=== PATIENT | male | born 1930 | race Caucasian/White ===

== ENCOUNTER 2017-12-22 13:57 | Outpatient (CLI) | payer MEDICARE, OTHER ==
[2015-08-13 09:09] VITALS: BP 123/88
[2017-12-22 14:25] LABS: MEAN CORPUSCULAR HEMOGLOBIN 31.1 pg (28.0-34.0); MEAN CORPUSCULAR VOLUME 96.4 fl (80.0-100.0)
[2017-12-22 14:40] LABS: eGFR (African) > 60; eGFR (Non-African) > 60
--- NOTE | 2017-12-22 14:51 | Diagnostic Imaging Report ---
JOLIE HINOJOSA [facility] [address] Formerly [facility] [address] 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 History: Evaluate lung gunn. DYSPNEA ON EXERTION (Hx) Comparison examination: None provided. Findings: PA lateral chest demonstrate a normal cardiac and mediastinal silhouette. Vascular calcifications involving the aortic arch. Parenchymal scarring at the bases and posterior sulci. No apical infiltrate. No blunting of the costophrenic margins. articular degenerative changes. Impression: Parenchymal scarring. No acute appearing pulmonary process. If symptoms persist, consider obtaining high-resolution CT chest to further evaluate. 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
== END 2017-12-22 14:00 ==
LOC: LAB 13:57
PROVIDERS: ATTEND Family Medicine
DX: R06.09 Other forms of dyspnea (principal)
CPT/HCPCS: 36415; 71046; 80053; 83880; 85027

== ENCOUNTER 2019-01-10 13:02 | Outpatient (CLI) | payer MEDICARE, OTHER ==
[2015-08-13 09:09] VITALS: BP 123/88
[2019-01-10 13:30] LABS: BASOPHILS % 0.5 (0.0-1.5); EOSINOPHILS % 4.4 % (0.0-6.8); MEAN CORPUSCULAR HEMOGLOBIN 32.4 pg (28.0-34.0); MONOCYTES % 7.7 % (0.0-11.0); NEUTROPHILS # 2.6 # k/uL (1.4-7.7)
[2019-01-10 13:47] LABS: eGFR (Non-African) 51
== END 2019-01-10 13:04 ==
LOC: LAB 13:02
PROVIDERS: ATTEND Family Medicine
DX: I10 Essential (primary) hypertension (principal); G62.9 Polyneuropathy, unspecified
CPT/HCPCS: 36415; 80053; 82607; 82746; 85025; 85651

== ENCOUNTER 2019-04-24 06:15 | Emergency (ER) | payer MEDICARE, OTHER ==
--- NOTE | 2019-04-24 06:40 | ED Physician Documentation ---
Upper Respiratory Symptoms - HISTORIAN Historian: patient - HPI Stated Complaint: Shorntess of breath Chief Complaint: Dyspnea Onset: days ago (2) Duration: constant Context: denies: recent foreign travel, multiple patients Severity: moderate Associated Symptoms: fever, productive cough, shortness of breath - ROS CONST/EYES: weakness CVS/RESP: shortness of breath LYMPH: denies: leg swelling, ankle swelling GI/: none NEURO/PSYCH: denies: dizziness MS/SKIN: denies: muscle aches - PAST HX Lung Disease: none PE Risk Factors: hypertension Other History: cardiac disease, CHF, hypertension Surgeries/Procedures: other (cataracts, LTKR) Immunizations: UTD - SOCIAL HX Smoking History: non-smoker Alcohol Use: none Drug Use: none - FAMILY HX Family History: none - REVIEWED ASSESSMENTS Nursing Assessment Reviewed: Yes Vitals Reviewed: Yes <Jazmín Alanis - Last Filed: 04/24/19 06:57> <Milad Pacheco - Last Filed: 04/24/19 09:15> - HPI Additional Information: Patient is an 88-year-old male who presents to the ER with son. Patient c/o shortness of breath. He was seen by PCP on 04/22/19 in the clinic and diagnosed with sinusitis and started on Augmentin. Patient started having cough and congestion last night and started complaining to his son this morning about being short of breath. (Jazmín Alanis) - PAST HX Allergies/Adverse Reactions: Allergies Allergy/AdvReac Type Severity Reaction Status Date / Time donepezil HCl Allergy Unknown Verified 04/24/19 06:38 Home Medications: Ambulatory Orders Medication Instructions Recorded Ampicillin Trihydrate 500 mg PO BID PRN 04/24/19 Carvedilol [Coreg] 3.125 mg PO BID 04/24/19 Cyanocobalamin/Cobamamide [Vitamin 1 each SL DAILY 04/24/19 B-12 5,000 Mcg Tab Sl] Garlic 1,000 mg PO DAILY 04/24/19 Magnesium Oxide [Magnesium] 250 mg PO DAILY 04/24/19 Rosuvastatin Calcium 20 mg PO HS 04/24/19 Saw [place] 320 mg PO DAILY 04/24/19 Ubidecarenone [Co Q10] 200 mg PO DAILY 04/24/19 Vitamin B Complex [Balanced B-50] 1 tab PO DAILY 04/24/19 - VITAL SIGNS Vital Signs: Vital Signs Temp Pulse Resp BP Pulse Ox 98.5 F 61 19 161/71 93 04/24/19 06:21 04/24/19 08:30 04/24/19 08:00 04/24/19 08:00 04/24/19 08:30 Progress - EKG/XRAY/CT EKG: NSR (NSR, rate=65; 1st degree AV block. RAD. PVC's.) <Milad Pacheco - Last Filed: 04/24/19 09:15> - Progress Progress: CXR: Cardiomegaly with atherosclerotic thoracic aorta with slight pulmonary venous congestion. Small infiltrate in the right lung base. No effusions or pneumothorax. [facility], Dr. Martinez (Milad Pacheco) - Lab Results Lab Results: Lab Results 04/24/19 04/24/19 04/24/19 07:06 06:40 06:40 WBC RBC Hgb Hct MCV MCH MCHC RDW Plt Count Neut % (Auto) Lymph % (Auto) [place] % (Auto) Eos % (Auto) Baso % (Auto) Neut # (Auto) Lymph # (Auto) [place] # (Auto) Eos # (Auto) Baso # (Auto) D-Dimer 911 ng/mL H ng/mL (6.0-682) Sodium Potassium Chloride Carbon Dioxide BUN Creatinine Est GFR ( Amer) Est GFR (Non-Af Amer) Glucose Calcium Total Bilirubin AST ALT Alkaline Phosphatase Creatine Kinase CK-MB (CK-2) Troponin I NT-Pro-B Natriuret Pep 5260.9 pg/mL H pg/mL (11.1-450.0) Total Protein Albumin Urine Color Yellow (YELLOW) Urine Appearance Clear (CLEAR) Urine pH 7.0 (5.0 - 8.0) Ur Specific [place] 1.015 (1.010-1.030) Urine Protein Negative mg/dL mg/dL (NEGATIVE) Urine Ketones Negative mg/dL mg/dL (NEGATIVE) Urine Occult Blood 1+ H (NEGATIVE) Urine Nitrite Negative (NEGATIVE) Urine Bilirubin Negative (NEGATIVE) Urine Urobilinogen 0.2 Eu Eu (0.2-1.0) Ur Leukocyte Esterase Negative (NEGATIVE) Urine Glucose Negative mg/dL mg/dL (NEGATIVE) 04/24/19 04/24/1919 06:40 06:40 06:40 WBC 7.10 K/ul K/ul (4.00-12.00) RBC 3.26 M/ul L M/ul (3.90-5.20) Hgb 10.3 g/dL L g/dL (12.0-18.0) Hct 30.7 % L % (37.0-53.0) MCV 94.0 fl fl (80.0-100.0) MCH 31.6 pg pg (28.0-34.0) MCHC 33.6 g/dL g/dL (30.0-36.0) RDW 13.2 % % (11.3-14.3) Plt Count 203 K/mm3 K/mm3 (130-400) Neut % (Auto) 76.4 % % (39.0-79.0) Lymph % (Auto) 12.6 % L % (16.0-50.0) [place] % (Auto) 8.9 % % (0.0-11.0) Eos % (Auto) 1.6 % % (0.0-6.8) Baso % (Auto) 0.5 % % (0.0-1.5) Neut # (Auto) 5.4 # k/uL # k/uL (1.4-7.7) Lymph # (Auto) 0.9 # k/uL # k/uL (0.6-4.0) [place] # (Auto) 0.6 # k/uL # k/uL (0.0-0.9) Eos # (Auto) 0.1 # k/uL # k/uL (0.0-0.6) Baso # (Auto) 0.0 # k/uL # k/uL (0.0-0.5) D-Dimer Sodium 129 mmol/L L mmol/L (137-145) Potassium 3.8 mmol/L mmol/L (3.5-5.1) Chloride 90 mmol/L L mmol/L (98-107) Carbon Dioxide 32 mmol/L H mmol/L (22-30) BUN 20 mg/dL mg/dL (9-20) Creatinine 0.99 mg/dL mg/dL (0.66-1.25) Est GFR ( Amer) > 60 (60 - ) Est GFR (Non-Af Amer) > 60 (60 - ) Glucose 126 mg/dL H mg/dL (74-106) Calcium 8.8 mg/dL mg/dL (8.4-10.2) Total Bilirubin 1.0 mg/dL mg/dL (0.2-1.3) AST 126 U/L H U/L (15-46) ALT 46 U/L U/L (13-69) Alkaline Phosphatase 82 U/L U/L (38-126) Creatine Kinase 382 U/L H U/L (55-170) CK-MB (CK-2) 4.2 ng/mL ng/mL (0.0-5.6) Troponin I 0.039 ng/mL H ng/mL (0.012-0.034) NT-Pro-B Natriuret Pep Total Protein 7.4 g/dL g/dL (6.3-8.2) Albumin 4.3 g/dL g/dL (3.5-5.0) Urine Color Urine Appearance Urine pH Ur Specific [place] Urine Protein Urine Ketones Urine Occult Blood Urine Nitrite Urine Bilirubin Urine Urobilinogen Ur Leukocyte Esterase Urine Glucose - Orders Orders: ED Orders Category Date Time Status Continuous EKG monitoring Q30M Care 04/24/19 06:27 Active Continuous Pulse Oximetry Q30M Care 04/24/19 06:[address] IV Lock 1T Care 04/24/19 06:27 Active CHEST 2VIEW [RAD] Stat Exams 04/24/19 Taken BNP [NTBNP] Stat Lab 04/24/19 06:40 Completed CBC/PLATELET/DIFF Routine Lab 04/24/19 06:40 Completed CKMB Stat Lab 04/24/19 06:40 Completed CMP Routine Lab 04/24/19 06:40 Completed CREATINE KINASE Routine Lab 04/24/19 06:40 Completed D DIMER Stat Lab 04/24/19 06:40 Completed TROPONIN I Stat Lab 04/24/19 06:40 Completed UA MACRO DIP ONLY Routine Lab 04/24/19 07:06 Completed 0.9 % Sodium Chloride [Normal Saline] 1,000 ml Med 04/24/19 07:33 Discontinued IV .STK-MED 0.9 % Sodium Chloride [Normal Saline] 1,000 ml Med 04/24/19 07:32 Discontinued IV Q1H Ipratropium/Albuterol Sulfate [Duoneb] Med 04/24/19 06:47 Discontinued 3 ml NEB NOW ONE Oxygen Daily Oxygen 04/24/19 06:30 Ordered EKG WITH COMPARISON Stat Ther 04/24/19 06:27 Ordered Upper Respiratory Symptoms - EXAM General Appearance: alert, mild distress EENT: eyes nml inspection, nml ENT inspection, lids & conjunct. nml, PERRL, ear nml (hearing aid in right ear), nose nml, pharynx nml Neck: normal inspection, supple Respiratory: speaks full sentences, rhonchi (right lower lobe) Abdomen: non-tender, nml bowel sounds CVS: heart sounds normal, equal pulses Skin: warm,dry, pallor Extremities: non-tender, normal range of motion Neuro/Psych: oriented x3, neuro intact, mood/affect nml <Jazmín Alanis - Last Filed: 04/24/19 06:57> Discharge <Jazmín Alanis - Last Filed: 04/24/19 06:57> Decision to Admit: NO Decision Time: 08:36 <Milad Pacheco - Last Filed: 04/24/19 09:15> Clincal Impression: chf, dyspnea, pnemonia, hyponatremia, Elevated troponin, hematuria Referrals: An Peterson MD [Primary Care Provider] - Comments: 07:[address] Pacheco (Jazmín Alanis) Condition: Stable Disposition: 02 XFER [facility]
[2019-04-24] MEDS ORDERED: IPRATROPIUM/ALBUTEROL SULFATE 3 ML AMPUL.NEB NEB ONE (06:47)
[2019-04-24 06:52] LABS: BASOPHILS % 0.5 % (0.0-1.5); NEUTROPHILS # 5.4 # k/uL (1.4-7.7)
[2019-04-24 06:54] LABS: eGFR (Non-African) > 60
[2019-04-24] MEDS ORDERED: 0.9 % SODIUM CHLORIDE 1,000 ML IV ONE ×2 (07:32→07:33)
[2019-04-24 09:13] LABS: APPEARANCE,URINE CLEAR (CLEAR); COLOR,URINE YELLOW (YELLOW); OCCULT BLOOD,URINE 1+ (NEGATIVE); UROBILINOGEN URINE 0.2 Eu (0.2-1.0)
[2019-04-24 09:54] VITALS: BP 168/81
--- NOTE | 2019-04-24 16:04 | Diagnostic Imaging Report ---
KARINE MORLEY [facility] [address] Formerly [facility] [address] [address] Report Submission Date: Apr 24, 2019 7:24:20 AM CDT Patient Study Name: FREDI ROJAS Date: Apr 24, 2019 6:54:31 AM CDT Modality Type: DX Gender: M Description: CHEST 2VIEW : 30 Institution: [facility] Physician: KARINE MORLEY Chest PA and lateral views Clinical history: Dyspnea and cough for 1 day Mild cardiomegaly with atherosclerotic thoracic aorta. Slight pulmonary venous congestion. Segmental infiltrate in the right lower lobe. Early Jevon b-lines. No significant effusions. Mild thoracic spine spondylosis. Impression: Cardiomegaly with atherosclerotic thoracic aorta with slight pulmonary venous congestion Small infiltrate in the right lung base. No effusions or pneumothorax Electronically signed on Apr 24, 2019 7:24:20 AM CDT by: Gokul CROUCH
== END 2019-04-24 09:59 | disposition short-term general hospital (02) ==
LOC: ED 06:15
DX: I50.33 Acute on chronic diastolic (congestive) heart failure (principal); J18.9 Pneumonia, unspecified organism; E87.1 Hypo-osmolality and hyponatremia; R79.89 Other specified abnormal findings of blood chemistry; R31.9 Hematuria, unspecified
CPT/HCPCS: 71046; 80053; 81002; 82550; 82553; 83880; 84484; 85025; 85379; 93005; 94640; 96360; 99284; J7030; S1016

== ENCOUNTER 2019-11-07 14:15 | Outpatient (CLI) | payer MEDICARE, OTHER ==
--- NOTE | 2019-11-08 13:27 | Diagnostic Imaging Report ---
[facility] [address] [facility] [address] Patient Name: FREDI ROJAS Referring Physician: DR JOLIE HINOJOSA Date of : 1930 Gender: M Date of Service: 11/07/2019 Exam Requested: SHOULDER 2 VIEWS OR MORE Exam: Right shoulder. History: Pain. AP views of the right shoulder in internal and external rotation are submitted along with Y-view. No signs of acute fracture or dislocation is seen. No bony erosions are seen. No soft tissue abnormalities are identified. Impression: No bony abnormality. A
== END 2019-11-07 14:30 ==
LOC: RAD 14:15
PROVIDERS: ATTEND Family Medicine
DX: M25.511 Pain in right shoulder (principal)